=== PATIENT | female | born 1935 | race Two or more races ===

== ENCOUNTER 2020-07-09 09:05 | Emergency (ER) | payer MEDICARE, MEDICAID, SELFPAY ==
--- NOTE | 2020-07-09 09:49 | PC.NURSE ---
PATIENT ARRIVED POINTING AT EPIGASTRIC AREA. PATIENT FOUND TO BE 84% ON ROOM AIR UPON ARRIVAL. BLOOD PRESSURE 225/129. PROVIDER WAS AT BEDSIDE. THIS NURSE WENT TO GET MEDS OUT OF PXIS[facility]. PATIENT CODED AT 0921. SEE CODE PAPERWORK FOR MORE INFORMATION.
--- NOTE | 2020-07-09 09:55 | ED.ABDPAIN ---
HPI - Abdominal Pain General Chief Complaint: Cardiac Arrest/CPR Stated Complaint: abd pain Time Seen by Provider: 07/09/20 09:13 Source: patient Mode of arrival: EMS Limitations: language barrier History of Present Illness HPI narrative: Patient presented to the ED with Epigastric pain radiating to the Chest as per EMS. Patient herself speaks [place] only and was not able to give history. patient was only grabbing her chest. Related Data Allergies Allergy/AdvReac Type Severity Reaction Status Date / Time No Known Allergies Allergy Verified 07/09/20 09:15 Review of Systems Review of Systems Yes Other (language barrier) Physical Exam Vital Signs: patient is in acute distress and grabbing chest. Course Course Course Narrative: Due to inability to ascertain history of patient and pmh of DM, HTN, and age. Plan was to order immediate morphine, aspirin, nitrate EKG, labs and possible imaging for such as Chest CTA and abdominal CT to rule out Pulmonary etiology or any other abdominal etiology if ekg was negative for STEMI. patient was unadressed and placed in gown. On room air 02 saturation was 84% so patient was placed on 2 liters nasal canula oxygen. No [place] bath attendant came on the carroll machine to help patient. THere was no agent availabe. Reevaluation(s) Reevaluation #1: Nurse Андрей went to get the pixus to get meds and Tech Jessica went to get EKG machine to perform EKG. I stepped out the room to cooberate the orders and when out I came back, patient was unresponsive and becoming bradycardic into the [address] Peña came and evaluated and called it a PEA so she began to run the code. Mutilple rounds of epinephrine, bicarb, calcium and then went into vfib and than patient was shocked at least twice, epinephrine and amiodarone. Patient never had a pulse and there was no cardiac activity as per ultrasound. was called at 9:45 Glucose POC was 166 Time: 10:13 Reevaluation #2: Myocardial Infarction was suspected and cause of Expiration. Time: 10:30 Reevaluation #3: Dr. Peña Spoke to [employer] [facility] who declined the case. ID# [id number] Time: 11:07 MDM - Abdominal Pain MDM Narrative Medical decision making narrative: . Differential OK Lab Data Labs: Lab Results 07/09/20 Range/Units 09:23 POC Glucose 166 H (60-115) mg/dL Critical Care Time Critical Care Time Critical Care Time: Yes Total Critical Care Time: 40 Attestation: Patient when into PEA and than Vfib. patient was given rounds of epinephrine, bicarb, amiodarone, calcium, and shocked twice. Code ran by Dr. Peña. patient . Discharge Plan Discharge Clinical Impression: Cardiac arrest Patient Disposition: [facility] Social History Social History Advance Directives: No Advance Directives Information Provided: Yes
--- NOTE | 2020-07-09 09:56 | PC.NURSE ---
EMS REPORTED THAT PATIENT CC OF EPIGASTRIC PAIN STARTED 10 HOURS PRIOR TO ARRIVAL. EMS VITALS ARE FOLLOWS. 97% O2 ON 2 LITERS, 91% ON RA, 188/122, 115 BPM, 24 RR. 0910- PATIENT VITALS OBTAINED, 225/129, 118 BPM, 85% ON RA, 95% ON 2L, 28 RR. 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
[2020-07-09 10:19] LABS: Glucose, Whole Blood 166 mg/dL (60-115)
== END 2020-07-09 11:16 | disposition expired ==
PROVIDERS: Emergency Provider Emergency Medicine
DX: I46.9 Cardiac arrest, cause unspecified (principal)
CPT/HCPCS: 82947; 96374; 96375; 99285; J0171; J0282